=== PATIENT | male | born 1995 | race African-American/Black ===

== ENCOUNTER 2024-03-14 08:03 | Emergency (ER) | payer SELFPAY ==
[2024-03-14 08:21] VITALS: BP 128/90; PULSE 89; RESP 17; TEMP 98.4; BMI 28.2
[2024-03-14] MEDS ORDERED: IBUPROFEN 400 MG TABLET (FP) PO ONE (08:51)
[2024-03-14] MEDS: IBUPROFEN 400 MG TABLET (FP) PO ONE (08:54)
[2024-03-14 09:07] LABS: THROAT:GRP A STREP NOT DETECTED (NOTDETECTED)
[2024-03-14] MEDS ORDERED: LIDOCAINE 4% PATCH TP ONE (10:51)
[2024-03-14] MEDS ORDERED: ACETAMINOPHEN 325 MG TABLET (FP) ONE (10:51)
[2024-03-14] MEDS: LIDOCAINE 4% PATCH TP ONE (10:58)
[2024-03-14] MEDS: ACETAMINOPHEN 325 MG TABLET (FP) PO ONE (10:58)
[2024-03-14] MEDS ORDERED: LIDOCAINE PATCH REMOVAL MC ONE (22:00)
== END 2024-03-14 12:10 | disposition home or self-care (01) ==
LOC: JER 08:03
DX: M54.2 Cervicalgia (principal); J06.9 Acute upper respiratory infection, unspecified; B97.89 Other viral agents as the cause of diseases classified elsewhere; J02.9 Acute pharyngitis, unspecified; M79.10 Myalgia, unspecified site; R09.81 Nasal congestion
CPT/HCPCS: 0241U-QW; 71046-TC-FY; 87651; 99284-25